=== PATIENT | male | born 1990 | race Caucasian/White ===

== ENCOUNTER 2021-08-23 13:59 | Emergency (ER) | payer BC, OTHER ==
[2021-08-23] MEDS ORDERED: IBUPROFEN 400 MG TABLET (FP) PO ONE ×2 (14:14→14:33)
[2021-08-23 14:32] VITALS: BP 132/77; PULSE 87; TEMP 98.3; BMI 29.5
== END 2021-08-23 16:01 | disposition home or self-care (01) ==
LOC: FER 13:59
DX: S62.306A Unspecified fracture of fifth metacarpal bone, right hand, initial encounter for closed fracture (principal); W22.8XXA Striking against or struck by other objects, initial encounter
CPT/HCPCS: 73130-TC-RT-FY; 99283-25